=== PATIENT | female | born 1930 | race Caucasian/White ===

== ENCOUNTER 2018-09-18 10:47 | Inpatient (IN) | payer BC ==
[~2018-09-18] VITALS: Ht 152.4 cm; Wt 54.4 kg
[2018-09-18] MEDS ORDERED: IV NORMAL SALINE 500 ML BAG IV ONE (11:00)
--- NOTE | 2018-09-18 11:05 | NUR ---
PT A/OX4, BIB RA100, C/O SOB. PT PRESENTS TO THE ER W/ CPAP IN PLACE. PT IN RESPIRATORY DISTRESS, RR 30 W/ SHALLOW BREATHS. VS WNL. PT'S SKIN IS COOL AND CLAMMY ON TOUCH. ER MD AT BEDSIDE FOR MSE. PT PLACED ON BIPAP PER ER MD ORDER. BIPAP SETTING - IPAP 12 EPAP 5 RATE 12 FIO2 50%
[2018-09-18 11:18] LABS: BASOPHILS % (AUTO) 0.6 % (0.0-2.0); EOSINOPHILS # (AUTO) 0.1 K/uL (0.0-0.7); EOSINOPHILS % (AUTO) 1.2 % (0.0-7.0); HEMATOCRIT 37.8 % (31.2-41.9); HEMOGLOBIN 12.3 g/dL (10.9-14.3); LYMPHOCYTES # (AUTO) 1.6 K/uL (20.0-40.0); MEAN CORPUSCULAR HEMOGLOBIN 33.1 uug (24.7-32.8); MEAN CORPUSCULAR HGB CONC 33 g/dL (32.3-35.6); MEAN CORPUSCULAR VOLUME 101.4 fL (75.5-95.3); MONOCYTES # (AUTO) 0.2 K/uL (2.0-10.0); MONOCYTES % (AUTO) 2.9 % (0.0-11.0); NEUTROPHILS # (AUTO) 6.2 K/uL (1.8-8.9); NEUTROPHILS % (AUTO) 76.3 % (38.5-71.5); PLATELET COUNT (AUTO) 342 K/uL (179-408); RED BLOOD CELL COUNT(AUTO) 3.73 MIL/uL (3.63-4.92); WHITE BLOOD COUNT (AUTO) 8.2 K/uL (3.8-11.8)
[2018-09-18 11:22] LABS: ABG BASE EXCESS 1.5 mmol/L; ABG HCO3 30.2 mmol/L; ABG PCO2 67.8 mmHg (35.0-45.0); ABG PH 7.266 (7.350-7.450); ABG SITE RIGHT RADIAL; ABG TOTAL HEMOGLOBIN 12.8 G/dL (12.0-16.0); COHb 0.8 % (0.5-1.5); MetHb 0.3 % (0.0-1.5); O2Hb 96.5 % (94.0-97.0)
[2018-09-18 11:25] LABS: CARBON DIOXIDE 29 mmol/L (21-32); CHLORIDE 101 mmol/L (98-107); CREATININE 1.2 mg/dL (0.6-1.3); GLUCOSE 288 mg/dL (74-106); POTASSIUM 4.5 mmol/L (3.5-5.1); UREA NITROGEN, BLOOD 34 mg/dL (7-18)
--- NOTE | 2018-09-18 11:28 | NUR ---
PT TOLERATING BIPAP. VS WNL. PT LESS AGITATED, RESTING COMFORTABLY IN BED.
--- NOTE | 2018-09-18 11:33 | NUR ---
PT RECEIVED ON CPAP MASK SHOWING SIGNS OF SOB. PT PLACED ON BIPAP 12/5/RATE 12/50% FIO2. ABG DONE 30MIN AFTER. PER RESULTS IPAP INCREASED TO 15. PT BREATHING APPEARS TO BE MORE COMFORTABLE. WILL CONTINUE TO MONITOR.
--- NOTE | 2018-09-18 11:36 | NUR ---
CHELSEA ROMO SPEAKING W/ DR. FERNANDEZ FOR BUSINESS PROCESS EXPERT CONSULT.
[2018-09-18 11:38] LABS: ALANINE AMINOTRANSFERASE 11 U/L (14-59); ALKALINE PHOSPHATASE 91 U/L (50-136); ASPARTATE AMINOTRANSFERASE 24 U/L (15-37); BILIRUBIN,DIRECT 0.2 mg/dL (0.0-0.2); BILIRUBIN,TOTAL 0.5 mg/dL (0.2-1.0); TOTAL PROTEIN, SERUM 7.2 g/dL (6.4-8.2)
--- NOTE | 2018-09-18 11:38 | NUR ---
DR STANTON WAS CALLED, DR BELLO LEARNING SUPPORT RESOURCE ROOM TEACHER SPOKE WITH DR ACE CASTAÑEDA TO GIVE ADMISSION TO [facility] FOR ADMISSION.
--- NOTE | 2018-09-18 11:43 | NUR ---
US TECH AT BEDSIDE.
[2018-09-18] MEDS ORDERED: METOPROLOL TARTRATE 5 MG/5 ML VIAL IVP ONE ×2 (11:52→12:00)
[2018-09-18] MEDS ORDERED: PIPERACILLIN SODIUM/TAZOBACTAM 3.375 G in IV DEXTROSE 5% 50 ML IV ONE (12:00)
[2018-09-18] MEDS ORDERED: LISI2.5T2 PO (12:00)
[2018-09-18] MEDS ORDERED: CALC-167 PO (12:00)
[2018-09-18] MEDS ORDERED: ASCO500C18 PO (12:00)
[2018-09-18] MEDS ORDERED: FURO-151 PO (12:00)
[2018-09-18] MEDS ORDERED: LEVO100T10 PO ×2 (12:00)
[2018-09-18] MEDS ORDERED: AMIN30LI2 PO (12:00)
[2018-09-18] MEDS ORDERED: FERR325T24 PO (12:00)
[2018-09-18] MEDS ORDERED: ACET325T53 PO (12:00)
[2018-09-18] MEDS ORDERED: BISA10SU12 RC (12:00)
[2018-09-18] MEDS ORDERED: CARE PO (12:00)
[2018-09-18] MEDS ORDERED: SPIR25TA6 PO (12:00)
[2018-09-18] MEDS ORDERED: MULT-213 PO (12:00)
[2018-09-18] MEDS ORDERED: GUAI600T53 PO (12:00)
[2018-09-18] MEDS ORDERED: NA P133E RC (12:00)
[2018-09-18] MEDS ORDERED: MAGN400O6 PO (12:00)
[2018-09-18] MEDS ORDERED: IPRA3AMP22 IH (12:00)
[2018-09-18] MEDS ORDERED: VANCOMYCIN IV 1,000 MG in IV DEXTROSE 5% 250 ML IV ONE (12:00)
[2018-09-18] MEDS ORDERED: PIPERACILLIN/TAZOBACTAM/D5W 50 ML IV ONE (12:13)
[2018-09-18] MEDS ORDERED: FUROSEMIDE 20 MG/2 ML VIAL IV ONE (12:15)
[2018-09-18] MEDS ORDERED: FUROSEMIDE 40 MG/4 ML VIAL ONE (12:25)
--- NOTE | 2018-09-18 12:40 | NUR ---
PT TAKEN TO RADIOLOGY FOR CT SCAN. PT DOES NOT APPEAR TO BE IN ANY RESPIRATORY DISTRESS AT THIS TIME. CPAP REMOVED BY RT, PT TOLERATING O2 3 LPM VIA N/C, SPO2 98%.
[2018-09-18] MEDS ORDERED: IV NORMAL SALINE 250 ML IV ONE (12:45)
[2018-09-18] MEDS ORDERED: NORMAL SALINE FLUSH 10 ML DISP.SYRIN ONE (12:45)
[2018-09-18] MEDS ORDERED: IOHEXOL 350 100 ML INFUS..BTL ONE (12:45)
[2018-09-18] MEDS ORDERED: SWABABLE VALVE TRANSFER SET EA MC ONE (12:45)
--- NOTE | 2018-09-18 13:05 | NUR ---
PT BACK IN ER FROM RADIOLOGY.
[2018-09-18] MEDS ORDERED: VANCOMYCIN IV 200 ML ONE (13:11)
--- NOTE | 2018-09-18 13:27 | NUR ---
[facility]ED [facility] FOR PANEL CALL - AWAITING CALLBACK. ATTEMPT 1.
--- NOTE | 2018-09-18 13:32 | NUR ---
ER SPEAKING W/ DR. WEST RE PT'S ADMISSION.
--- NOTE | 2018-09-18 14:00 | NUR ---
Pt. admitted to TELE 314, under care of Dr. WEST. Belongs List completed
--- NOTE | 2018-09-18 14:10 | NUR ---
PT SHOWS NO MORE SIGNS OF RESPIRATORY DISTRESS. BIPAP REMOVED AND REMAINS BY BEDSIDE. PT PLACED ON 3LPM NASAL CANULA WITH SPO2 MAINTAINED WITHIN NORMAL LIMITS.
--- NOTE | 2018-09-18 14:23 | NUR ---
ADMITTING REPORT GIVEN TO DELORIS PERAZA.
--- NOTE | 2018-09-18 15:10 | NUR ---
Received report from ER, patient non ambulatory in bed, wound on right lower extremity noted, and pictures taken. Patient oriented to room, vitals recorded, and patient made comfortable. Sister provided information as patient is hard of hearing and slow to respond. Casemanagement also at bedside collecting data.
[2018-09-18] MEDS ORDERED: BISACODYL 10 MG SUPP.RECT RC PRN (16:30)
[2018-09-18] MEDS ORDERED: ZOLPIDEM 5 MG TABLET PO PRN (16:30)
[2018-09-18] MEDS ORDERED: MAGNESIUM HYDROXIDE 30 ML LIQUID UDC PO PRN ×2 (16:30)
[2018-09-18] MEDS ORDERED: ONDANSETRON 4 MG/2 ML VIAL IV PRN (16:30)
[2018-09-18] MEDS ORDERED: Z GUARD REMEDY PASTE 57 GM TUBE TOP PRN (16:30)
[2018-09-18] MEDS ORDERED: FLEET ENEMA 133 ML BOTTLE RC PRN (16:30)
[2018-09-18] MEDS ORDERED: ACETAMINOPHEN 325 MG TABLET PO PRN ×2 (16:30)
[2018-09-18] MEDS ORDERED: BUMETANIDE INJ 2 MG in IV DEXTROSE 5% 42 ML IV ONE (16:30)
[2018-09-18] MEDS: CALCIUM CARB/VITAMIN D 500MG-200UNITS TABLET PO SCH (17:20)
[2018-09-18] MEDS: HYDROCODONE/APAP 5-325MG TABLET PO PRN (17:20)
--- NOTE | 2018-09-18 19:04 | NUR ---
Patient in bed, no distress noted at this time, bed in low position, side rails up x2. Bumex drip running. IV intact.
--- NOTE | 2018-09-18 20:00 | NUR ---
Received report from the day shift, patient is non-ambulatory, resting in bed, wound on right lower lateral extremity noted, dressing is soaked and malodorous, pictures are on file. Patient is alert and oriented to person, place, and time. C/O pain in the right knee, refused pain meds. Comfort and safety provided, bed is in low, locked position, rails x2, bed alarm is on. Will continue to monitor
[2018-09-18] MEDS: LISINOPRIL 5 MG TABLET PO SCH (21:00)
[2018-09-18] MEDS: GUAIFENESIN LA 600 MG TABLET.SA PO SCH (21:04)
[2018-09-18 21:10] VITALS: BP 105/52
[2018-09-19] VITALS: BP 98/50
[2018-09-19] MEDS: HYDROCODONE/APAP 5-325MG TABLET PO PRN ×2 (03:53→23:17)
[2018-09-19 04:00] VITALS: BP 96/44
[2018-09-19 06:49] LABS: BASOPHILS % (AUTO) 0.5 % (0.0-2.0); EOSINOPHILS # (AUTO) 0.1 K/uL (0.0-0.7); EOSINOPHILS % (AUTO) 1.1 % (0.0-7.0); HEMOGLOBIN 11.4 g/dL (10.9-14.3); LYMPHOCYTES # (AUTO) 0.8 K/uL (20.0-40.0); LYMPHOCYTES % (AUTO) 13.5 % (20.5-51.5); MEAN CORPUSCULAR HEMOGLOBIN 32.5 uug (24.7-32.8); MEAN CORPUSCULAR HGB CONC 33 g/dL (32.3-35.6); MEAN CORPUSCULAR VOLUME 99.5 fL (75.5-95.3); MONOCYTES # (AUTO) 0.3 K/uL (2.0-10.0); MONOCYTES % (AUTO) 5.1 % (0.0-11.0); NEUTROPHILS # (AUTO) 4.9 K/uL (1.8-8.9); NEUTROPHILS % (AUTO) 79.8 % (38.5-71.5); PLATELET COUNT (AUTO) 247 K/uL (179-408); RED BLOOD CELL COUNT(AUTO) 3.52 MIL/uL (3.63-4.92); WHITE BLOOD COUNT (AUTO) 6.1 K/uL (3.8-11.8)
--- NOTE | 2018-09-19 06:55 | NUR ---
Patient did not sleep after 0300, C/O pain in the right knee, Thornton given with good results. Patient was cleaned and repositioned, tolerated well. Comfort and safety provided, bed is in low, locked position, rails x2, bed alarm is on.
[2018-09-19 06:58] LABS: CARBON DIOXIDE 37 mmol/L (21-32); CHLORIDE 101 mmol/L (98-107); CHOLESTEROL 170 mg/dL (<200); GLUCOSE 83 mg/dL (74-106); HDL CHOLESTEROL 56 mg/dL (40-60); MAGNESIUM 2.1 mg/dL (1.8-2.4); PHOSPHOROUS 4.1 mg/dL (2.5-4.9); POTASSIUM 3.7 mmol/L (3.5-5.1); TRIGLYCERIDES 43 MG/DL (30-150); UREA NITROGEN, BLOOD 29 mg/dL (7-18)
[2018-09-19] MEDS ORDERED: LEVOTHYROXINE SODIUM 100 MCG TABLET PO SCH ×2 (07:00→09:00)
[2018-09-19] MEDS ORDERED: FUROSEMIDE 40 MG TABLET PO SCH (09:00)
[2018-09-19] MEDS ORDERED: FUROSEMIDE 40 MG/4 ML VIAL IV SCH ×3 (09:00→21:00)
[2018-09-19] MEDS ORDERED: Medication Not On Formulary EA (Ascorbic Acid (Vitamin C) 500 MG) PO SCH (09:00)
--- NOTE | 2018-09-19 09:00 | NUR ---
BP 103/48 DR. FERNANDEZ NOTIFIED AND STATED TO GIVE LASIX AND ALDACTONE THIS AM.
[2018-09-19] MEDS: GUAIFENESIN LA 600 MG TABLET.SA PO SCH ×2 (09:25→20:35)
[2018-09-19] MEDS: ASCORBIC ACID 500 MG TABLET PO SCH (09:25)
[2018-09-19] MEDS: SPIRONOLACTONE 25 MG TABLET PO SCH (09:25)
[2018-09-19] MEDS: FERROUS SULFATE 325 MG TABEC PO SCH (09:25)
[2018-09-19] MEDS: CALCIUM CARB/VITAMIN D 500MG-200UNITS TABLET PO SCH ×2 (09:25→17:56)
[2018-09-19 11:37] VITALS: BP 100/50
[2018-09-19 13:15] LABS: ABG BASE EXCESS 9.3 mmol/L; ABG HCO3 35.1 mmol/L; ABG PCO2 52.8 mmHg (35.0-45.0); ABG PO2 98.2 mmHg (75.0-100.0); ABG SITE RIGHT RADIAL; ABG TOTAL HEMOGLOBIN 12.7 G/dL (12.0-16.0); MetHb 0.4 % (0.0-1.5); VENT MODE Nasal Cannula
[2018-09-19] MEDS: IPRATROPIUM BROMIDE 0.5 MG/2.5 ML NEBU NEB SCH ×2 (13:34→19:25)
[2018-09-19 15:07] VITALS: BP 100/51
--- NOTE | 2018-09-19 19:45 | NUR ---
RECEIVED PATIENT AWAKE AND ALERT IN BED IN HIGH FOWLERS POSITION, RECEIVING BREATHING TREATMENT AND TOLERATING WELL. NO SIGNS OF ACUTE DISTRESS NOTED. NO COMPLAINTS OF PAIN OR SOB. BLE EDEMA NOTED AND RIGHT ANKLE WOUND DRESSING IS INTACT. IV ON THE RIGHT AC IS INTACT AND PATENT. SAFETY MEASURES INITIATED. BED IS LOW AND LOCKED, CALL LIGHT IS WITHIN REACH. WILL CONTINUE TO MONITOR.
[2018-09-19] MEDS: LISINOPRIL 5 MG TABLET PO SCH (20:37)
[2018-09-19 20:48] VITALS: BP 99/53
--- NOTE | 2018-09-19 23:00 | NUR ---
Informed by pt that she refuses to be placed on AVAPS for sleep/NOC and also refused to be given the 0100 ordered resp neb tx. RN MT made aware and notified. Pt is on 2LNC and is in no respiratory distress.
--- NOTE | 2018-09-20 00:21 | NUR ---
Pt eventually agreed to be placed on AVAPS. Pt placed on Respironics V-60 on AVAPS mode per prescribed settings of resp rate 12, VT 500, EPAP 6 FIO2-30% and PSV 5-30. BVM at bedside. Pt appears to be tolerating settings well. V-60 alarm parameters have been checked and remain audible.
[2018-09-20 00:26] VITALS: BP 91/46
[2018-09-20] MEDS: IPRATROPIUM BROMIDE 0.5 MG/2.5 ML NEBU NEB SCH ×4 (00:39→19:28)
--- NOTE | 2018-09-20 01:00 | NUR ---
Patient wanted to be taken off of AVAPS. Explained the importance of it and why she was on it again, but she started to become agitated and said "i'm going to pull this off right now if you don't take it off, it's not helping me" called the RT and informed that the patient wanted to be removed from AVAPS.
--- NOTE | 2018-09-20 01:10 | NUR ---
Pt called and requested to be removed from AVAPS at this time. Pt subsequently placed back on 2LNC. Pt is in no respiratory distress. RN MT aware/notified.
[2018-09-20 05:12] VITALS: BP 94/46
--- NOTE | 2018-09-20 06:07 | NUR ---
Patient slept well after being removed from AVAP. No acute distress noted. No complaints of SOB. Complained of pain, gave PRN pain medication and was effective. Heplock on the right AC is intact and patent. All medications given as ordered. All needs were met. Will continue to monitor.
[2018-09-20] MEDS: LEVOTHYROXINE SODIUM 125 MCG TABLET PO SCH (06:24)
[2018-09-20 06:26] LABS: BASOPHILS % (AUTO) 0.7 % (0.0-2.0); EOSINOPHILS # (AUTO) 0.1 K/uL (0.0-0.7); EOSINOPHILS % (AUTO) 1.8 % (0.0-7.0); HEMATOCRIT 35.4 % (31.2-41.9); HEMOGLOBIN 11.5 g/dL (10.9-14.3); LYMPHOCYTES % (AUTO) 20.2 % (20.5-51.5); MEAN CORPUSCULAR HEMOGLOBIN 32.2 uug (24.7-32.8); MEAN CORPUSCULAR HGB CONC 32 g/dL (32.3-35.6); MEAN CORPUSCULAR VOLUME 99.2 fL (75.5-95.3); MONOCYTES # (AUTO) 0.3 K/uL (2.0-10.0); MONOCYTES % (AUTO) 6.1 % (0.0-11.0); NEUTROPHILS # (AUTO) 3.5 K/uL (1.8-8.9); NEUTROPHILS % (AUTO) 71.2 % (38.5-71.5); PLATELET COUNT (AUTO) 246 K/uL (179-408); RED BLOOD CELL COUNT(AUTO) 3.57 MIL/uL (3.63-4.92); WHITE BLOOD COUNT (AUTO) 4.9 K/uL (3.8-11.8)
[2018-09-20 06:42] LABS: ALANINE AMINOTRANSFERASE 10 U/L (14-59); ALKALINE PHOSPHATASE 76 U/L (50-136); ASPARTATE AMINOTRANSFERASE 19 U/L (15-37); BILIRUBIN,TOTAL 0.4 mg/dL (0.2-1.0); CARBON DIOXIDE 37 mmol/L (21-32); CHLORIDE 100 mmol/L (98-107); GLUCOSE 85 mg/dL (74-106); PHOSPHOROUS 3.5 mg/dL (2.5-4.9); TOTAL PROTEIN, SERUM 6.6 g/dL (6.4-8.2); UREA NITROGEN, BLOOD 29 mg/dL (7-18)
--- NOTE | 2018-09-20 07:30 | NUR ---
RECEIVED PATIENT ON BED, AWAKE, AAOX3, NO ACUTE DISTRESS NOTED ON TELE SR. ON O2 @ 2LPM VIA NC, NO COMPLAINTS OF SOB AT THIS TIME. IV ACCESS ON RFA #20 TKO ON BEDREST, DIAPER, APPEARS COMFORTABLE. COMFORT MEASURES PROVIDED. SAFETY PRECS OBSERVED AT ALL TIMES. CALL LIGHT WITHIN REACH. WILL CONTINUE TO MONITOR CLOSELY.
[2018-09-20] MEDS: GUAIFENESIN LA 600 MG TABLET.SA PO SCH ×2 (10:04→20:48)
[2018-09-20] MEDS: CALCIUM CARB/VITAMIN D 500MG-200UNITS TABLET PO SCH ×2 (10:04→16:41)
[2018-09-20] MEDS: FERROUS SULFATE 325 MG TABEC PO SCH (10:05)
[2018-09-20] MEDS: ASCORBIC ACID 500 MG TABLET PO SCH (10:05)
[2018-09-20] MEDS: FUROSEMIDE 40 MG TABLET PO SCH ×2 (10:12→16:41)
[2018-09-20] MEDS: SPIRONOLACTONE 25 MG TABLET PO SCH (10:12)
[2018-09-20 11:45] VITALS: BP 94/52
--- NOTE | 2018-09-20 13:58 | NUR ---
WOUND CARE CONSULT: PT FOLLOWED BY DPM FOR LEG WOUND. DEFER TO PODIATRY TEAM FOR WOUND TREATMENT PLAN. ALL SKIN PROTECTION MEASURES IN PLACE AND DISCUSSED WITH NURSING STAFF. WILL SEE PRN.
[2018-09-20 16:06] VITALS: BP 103/57
--- NOTE | 2018-09-20 18:16 | NUR ---
PATIENT STABLE THROUGHOUT SHIFT. ON TELE SR, NO SOB NOTED. WOUND TREATMENT ON RIGHT LOWER LEG DONE, WELL TOLERATED. IV ACCESS ON RIGHT UPPER ARM #22, INTACT AND PATENT. NO COMPLAINTS OF PAIN/DISCOMFORT. ALL NEEDS ATTENDED AND ANTICIPATED. CALL LIGHT WITHIN REACH. WILL ENDORSE ACCORDINGLY.
--- NOTE | 2018-09-20 19:00 | NUR ---
RECD PT IN BED, ALERT AND ORIENTED X 4, NO ACUTE RESP DISTRESS NOTED.ON TELE PACING 76, OXYGEN VIA NASAL CANNULA ON @ 2L/MIN,NEEDS ATTENDED TO. KEPT WARM AND COMFORTABLE.VITAL SIGNS TAKEN AND RECORDED.
[2018-09-20 19:56] VITALS: BP 92/47
[2018-09-20] MEDS: LISINOPRIL 5 MG TABLET PO SCH (20:50)
[2018-09-20 21:00] VITALS: BP 104/62
--- NOTE | 2018-09-20 23:13 | NUR ---
DUE MEDS GIVEN,RESTED FAIRLY WELL.NO DISTRESS NOTED. REFUSED BIPAP , SATURATION 97%,
[2018-09-21] VITALS (14 sets, daily range): BP systolic 76–101; BP diastolic 31–54
--- NOTE | 2018-09-21 01:00 | NUR ---
YADI LE UP ON PILLOWS,2+EDEMA,RIGHT LE DRESSING INTACT AND DRY.SLEPT INTERMITTENTLY.REMAINS ON TELE SR.CALL LITE W/I REACH.
[2018-09-21] MEDS: IPRATROPIUM BROMIDE 0.5 MG/2.5 ML NEBU NEB SCH ×4 (01:21→19:24)
--- NOTE | 2018-09-21 05:30 | NUR ---
pt slept well through the night and was easily awoken, pt denies having any pain or difficulty breathing, pt is on 2L NC pt refused to use her Bi PAP during the night pt saturating at 96% with nasal canula. all needs met, safety measures are in place, call light within reach, bed alarm is on.
[2018-09-21] MEDS: LEVOTHYROXINE SODIUM 125 MCG TABLET PO SCH (06:08)
--- NOTE | 2018-09-21 06:35 | NUR ---
INFORMATION SENT: JULISSA,UR-09/20,PROGRESS NOTES 4-8 INSURANCE NAME: SHANIQUE HALL FAX NUMBER: [phone] FAX SENT
[2018-09-21 06:39] LABS: BASOPHILS % (AUTO) 0.5 % (0.0-2.0); EOSINOPHILS # (AUTO) 0.1 K/uL (0.0-0.7); EOSINOPHILS % (AUTO) 1.3 % (0.0-7.0); HEMATOCRIT 36.2 % (31.2-41.9); HEMOGLOBIN 11.8 g/dL (10.9-14.3); LYMPHOCYTES % (AUTO) 19.2 % (20.5-51.5); MEAN CORPUSCULAR HEMOGLOBIN 32.4 uug (24.7-32.8); MEAN CORPUSCULAR HGB CONC 33 g/dL (32.3-35.6); MEAN CORPUSCULAR VOLUME 99.2 fL (75.5-95.3); MONOCYTES # (AUTO) 0.3 K/uL (2.0-10.0); MONOCYTES % (AUTO) 5.2 % (0.0-11.0); NEUTROPHILS # (AUTO) 3.7 K/uL (1.8-8.9); NEUTROPHILS % (AUTO) 73.8 % (38.5-71.5); PLATELET COUNT (AUTO) 281 K/uL (179-408); RED BLOOD CELL COUNT(AUTO) 3.65 MIL/uL (3.63-4.92)
[2018-09-21 06:44] LABS: ALANINE AMINOTRANSFERASE 10 U/L (14-59); ALKALINE PHOSPHATASE 72 U/L (50-136); ASPARTATE AMINOTRANSFERASE 14 U/L (15-37); BILIRUBIN,TOTAL 0.4 mg/dL (0.2-1.0); CARBON DIOXIDE 39 mmol/L (21-32); CHLORIDE 96 mmol/L (98-107); CREATININE 0.9 mg/dL (0.6-1.3); GLUCOSE 84 mg/dL (74-106); MAGNESIUM 1.9 mg/dL (1.8-2.4); PHOSPHOROUS 3.1 mg/dL (2.5-4.9); POTASSIUM 3.7 mmol/L (3.5-5.1); TOTAL PROTEIN, SERUM 6.7 g/dL (6.4-8.2); UREA NITROGEN, BLOOD 27 mg/dL (7-18)
--- NOTE | 2018-09-21 07:02 | NUR ---
received patient in bed laying comfortably with bed in low position , side rails up x2, and bed alarm on. no c/o pain , no s/s sob noted at this time. will continue to monitor and continue treatment plan.
[2018-09-21] MEDS: FERROUS SULFATE 325 MG TABEC PO SCH (08:26)
[2018-09-21] MEDS: ASCORBIC ACID 500 MG TABLET PO SCH (08:26)
[2018-09-21] MEDS: FUROSEMIDE 40 MG TABLET PO SCH ×2 (08:26→17:00)
[2018-09-21] MEDS: SPIRONOLACTONE 25 MG TABLET PO SCH (08:26)
[2018-09-21] MEDS: GUAIFENESIN LA 600 MG TABLET.SA PO SCH ×2 (08:26→21:09)
[2018-09-21] MEDS: CALCIUM CARB/VITAMIN D 500MG-200UNITS TABLET PO SCH ×2 (08:27→18:08)
[2018-09-21] MEDS: POTASSIUM CHLORIDE 20 MEQ TAB.PRT.SR PO SCH ×2 (11:01→18:09)
[2018-09-21] MEDS ORDERED: FURO40TA5 PO (12:17)
[2018-09-21] MEDS ORDERED: IV NORMAL SALINE 250 ML BAG IV ONE (17:00)
--- NOTE | 2018-09-21 17:00 | NUR ---
patient blood pressure dropped to 76/[address] Shea with order of 250 ml of NS bolus and hold 1700 lasix.
--- NOTE | 2018-09-21 18:38 | NUR ---
patient in bed laying comfortably with HOB elevated, bed in low position , side rails up x2, and bed alarm on. no c/o pain , no s/s sob noted at this time. patient's bp at 98/43. will continue to monitor and continue treatment plan with maintenance supervisor 2nd shift.
--- NOTE | 2018-09-21 19:40 | NUR ---
Received patient awake, alert and oriented. Not in any form of distress. Patient is on room air, tolerated. Noted with immobilizer at right leg. With discharge orders already, awaiting authorization from [facility] for patient to go back there, case liner aware. Noted with episode of low blood pressure this morning, will continue to monitor. Bed in low position, locked, side rails up x 2, call light within reach. Noise and lights subdued.
[2018-09-21] MEDS: LISINOPRIL 5 MG TABLET PO SCH (21:00)
--- NOTE | 2018-09-21 21:30 | NUR ---
Noted latest blood pressure is 90/44. Will continue to monitor.
[2018-09-22] MEDS: IPRATROPIUM BROMIDE 0.5 MG/2.5 ML NEBU NEB SCH ×3 (00:56→13:26)
[2018-09-22 03:47] VITALS: BP 90/42
--- NOTE | 2018-09-22 05:46 | NUR ---
Patient slept intermittently throughout the shift. No distress noted. Patient is on room air, tolerated. Noted with immobilizer at right leg, maintained. Noted with discharge order. Attended all needs. Ensured patient safety and comfort. No complaints made.
[2018-09-22] MEDS: LEVOTHYROXINE SODIUM 125 MCG TABLET PO SCH (06:17)
[2018-09-22 06:46] LABS: BASOPHILS % (AUTO) 0.9 % (0.0-2.0); EOSINOPHILS # (AUTO) 0.1 K/uL (0.0-0.7); EOSINOPHILS % (AUTO) 1.3 % (0.0-7.0); HEMATOCRIT 37.1 % (31.2-41.9); HEMOGLOBIN 12.2 g/dL (10.9-14.3); LYMPHOCYTES # (AUTO) 0.9 K/uL (20.0-40.0); LYMPHOCYTES % (AUTO) 17.2 % (20.5-51.5); MEAN CORPUSCULAR HEMOGLOBIN 32.5 uug (24.7-32.8); MEAN CORPUSCULAR HGB CONC 33 g/dL (32.3-35.6); MEAN CORPUSCULAR VOLUME 98.8 fL (75.5-95.3); MONOCYTES # (AUTO) 0.2 K/uL (2.0-10.0); MONOCYTES % (AUTO) 4.7 % (0.0-11.0); NEUTROPHILS % (AUTO) 75.9 % (38.5-71.5); PLATELET COUNT (AUTO) 261 K/uL (179-408); RED BLOOD CELL COUNT(AUTO) 3.75 MIL/uL (3.63-4.92); WHITE BLOOD COUNT (AUTO) 5.2 K/uL (3.8-11.8)
[2018-09-22 06:56] LABS: CARBON DIOXIDE 34 mmol/L (21-32); CHLORIDE 99 mmol/L (98-107); CREATININE 0.8 mg/dL (0.6-1.3); GLUCOSE 91 mg/dL (74-106); PHOSPHOROUS 2.8 mg/dL (2.5-4.9); POTASSIUM 4.7 mmol/L (3.5-5.1); UREA NITROGEN, BLOOD 28 mg/dL (7-18)
--- NOTE | 2018-09-22 07:29 | NUR ---
INFORMATION SENT: JULISSA,UR-09/21,24 HOURS REPORT INSURANCE NAME: SHANIQUE HALL FAX NUMBER: [phone] FAX SENT
[2018-09-22] MEDS: SPIRONOLACTONE 25 MG TABLET PO SCH (09:53)
[2018-09-22] MEDS: ASCORBIC ACID 500 MG TABLET PO SCH (09:53)
[2018-09-22] MEDS: CALCIUM CARB/VITAMIN D 500MG-200UNITS TABLET PO SCH (09:54)
[2018-09-22] MEDS: FUROSEMIDE 40 MG TABLET PO SCH (09:54)
[2018-09-22] MEDS: GUAIFENESIN LA 600 MG TABLET.SA PO SCH (09:55)
[2018-09-22] MEDS: FERROUS SULFATE 325 MG TABEC PO SCH (09:57)
[2018-09-22 11:46] VITALS: BP 94/46
[2018-09-22 15:55] VITALS: BP 105/53
--- NOTE | 2018-09-22 16:50 | NUR ---
PATIENT DISCHARGED TO [facility]. PICKED UP BY AMBULANCE 2EMTS.PATIENT IS ALERT,ORIENTEDX3-4,NO SOB, NO SIGNS AND SYMPTOMS OF PAIN,RESP EVEN NONLABORED,SKIN WARM AND DRY TO TOUCH, NO ACUTE DISTRESS NOTED,DISCHARGE INSTRUCTIONS GIVEN TO PATIENT,VERBALIZED UNDERSTANDING OF INSTRUCTIONS, DISCHARGE INSTRUCTIONS SENT WITH AMBULANCE.REPORT GIVEN TO THE NURSE AT [facility]. IV REMOVED.BELONGINGS SENT WITH PATIENT.
--- NOTE | 2018-09-23 03:47 | NUR ---
INFORMATION SENT: FACESHEET,UR-09/22,PROGRESS NOTES,VITALS,24 HOURS,IMAGING FAXED TO: SHANIQUE HUGHES [facility] ; [phone] FAXED BY: PALLAVI
[2018-09-23] MEDS ORDERED: FUROSEMIDE 40 MG TABLET PO SCH (09:00)
== END 2018-09-22 16:50 | DRG 291 ==
LOC: ER 10:47 → TELE3 14:26 → MEDSURG3 09-21 13:10
PROVIDERS: ADMIT Internal Medicine; ATTEND Internal Medicine
PROC: 5A09357 Assistance with Respiratory Ventilation, Less than 24 Consecutive Hours, Continuous Positive Airway Pressure (ICD-10-PCS; principal; 2018-09-18)
DX: I11.0 Hypertensive heart disease with heart failure (principal); J96.22 Acute and chronic respiratory failure with hypercapnia; J96.21 Acute and chronic respiratory failure with hypoxia; E43 Unspecified severe protein-calorie malnutrition; E87.2 Acidosis; I50.43 Acute on chronic combined systolic (congestive) and diastolic (congestive) heart failure; Z87.891 Personal history of nicotine dependence; I44.7 Left bundle-branch block, unspecified; I44.0 Atrioventricular block, first degree; E03.9 Hypothyroidism, unspecified; S82.141D Displaced bicondylar fracture of right tibia, subsequent encounter for closed fracture with routine healing; X58.XXXD Exposure to other specified factors, subsequent encounter; S81.801A Unspecified open wound, right lower leg, initial encounter; W19.XXXA Unspecified fall, initial encounter; Y92.89 Other specified places as the place of occurrence of the external cause; I73.9 Peripheral vascular disease, unspecified; I08.3 Combined rheumatic disorders of mitral, aortic and tricuspid valves; I71.4 Abdominal aortic aneurysm, without rupture; I42.9 Cardiomyopathy, unspecified; Z79.899 Other long term (current) drug therapy; Z91.81 History of falling; I77.1 Stricture of artery
CPT/HCPCS: 36415; 36600; 70030-TC; 71045; 71275; 83735; 84100; 84443; 84480; 85025; 85730; 87040; 87400; 93005; 93307; 94640; 94660; 94664; 97116; 97165; 97530; A4663; G0378; J1940; J2543; J3370; J3490; J3590; J7040; J7050; J7060; Q9967